=== PATIENT | female | born 1990 | race Caucasian/White ===

== ENCOUNTER → 2017-03-10 | Outpatient (CLI) | payer BC ==
[~2017-03-10] MED LIST: ONDA4TAB46 PO; PRENTAB26 PO
== END | disposition home or self-care (01) ==
LOC: C.LAB 12:32
PROVIDERS: ATTEND Obstetrics & Gynecology
DX: Z34.02 Encounter for supervision of normal first pregnancy, second trimester (principal)

== ENCOUNTER → 2017-03-11 | Day surgery (SDC) | payer BC ==
[~2017-03-11] VITALS: Ht 160 cm; Wt 78.5 kg
[2017-03-11 10:04] VITALS: BP 119/82; PULSE 87; TEMP 36.9; O2SAT 97; Ht 160 cm; Wt 78.5 kg
== END | disposition home or self-care (01) ==
LOC: C.MTU 09:44
PROVIDERS: ATTEND Obstetrics & Gynecology
DX: O36.0190 Maternal care for anti-D [Rh] antibodies, unspecified trimester, not applicable or unspecified (principal); Z3A.00 Weeks of gestation of pregnancy not specified

== ENCOUNTER → 2017-04-11 | Outpatient (CLI) | payer BC | END | disposition home or self-care (01) | LOC: C.LABSPEC 16:53 | PROVIDERS: ATTEND Obstetrics & Gynecology | DX: Z34.83 Encounter for supervision of other normal pregnancy, third trimester (principal) ==

== ENCOUNTER 2017-05-09 08:23 | Inpatient (IN) | payer BC ==
[~2017-05-09] VITALS: Ht 160 cm; Wt 85.9 kg
[2017-05-09] MEDS ORDERED: LACTATED RINGER'S 1000ML 1,000 ML IV PRN (09:09)
[2017-05-09 09:23] VITALS: Ht 160 cm; Wt 85.9 kg
[2017-05-09] MEDS ORDERED: PATIENT'S ALLERGY INFO NEEDS ENTERED SCH (09:30)
[2017-05-09 09:56] LABS: HEMATOCRIT 36.2 % (37-47); HEMOGLOBIN 12.3 g/dL (12.0-16.0); MEAN CORPUSCULAR HEMOGLOBIN 30.6 pg (25-34); MEAN PLATELET VOLUME 9.8 fL (7.4-10.4); PLATELET COUNT 308 K/uL (130-400); RED CELL DISTRIBUTION WIDTH SD 42.7 fL (36.4-46.3); WHITE BLOOD COUNT 16.31 K/uL (4.8-10.8)
[2017-05-09] MEDS: LACTATED RINGER'S 1000ML 1,000 ML IV SCH ×2 (14:56→16:52)
[2017-05-09] MEDS ORDERED: EpHEDrine SULFATE INJ 50 MG/ML AMP ONE (15:01)
[2017-05-09] MEDS ORDERED: BUPIVACAINE 0.25% 30 ML VIAL ONE (15:01)
[2017-05-09] MEDS ORDERED: FENTANYL CITRATE INJ 50 MCG/1 ML 2 ML VIAL ONE (15:02)
[2017-05-09] MEDS ORDERED: FENTANYL 2MCG/ML ROPIV 1.25MG/ML 100ML BAG EPI ONE (15:03)
[2017-05-09] MEDS ORDERED: NALOXONE HCL INJ 1 MG in SODIUM CHLORIDE 0.9% 1000ML 1,000 ML IV PRN (15:54)
[2017-05-09] MEDS ORDERED: LACTATED RINGER'S 1000ML 500 ML IV PRN ×2 (15:54→16:14)
[2017-05-09] MEDS ORDERED: PROMETHAZINE HCL INJ 6.25 MG in SODIUM CHLORIDE 0.9% 50ML 50 ML IV PRN (16:00)
[2017-05-09] MEDS ORDERED: DiphenhydrAMINE HCL 50 MG/ML VIAL IV PRN (16:00)
[2017-05-09] MEDS ORDERED: ONDANSETRON INJ 2 MG/ML 2 ML VIAL IV PRN (16:00)
[2017-05-09] MEDS ORDERED: EpHEDrine SULFATE INJ 50 MG/ML AMP IV PRN (16:00)
[2017-05-09] MEDS ORDERED: NALBUPHINE HCL INJ 10 MG/ML AMP IV PRN (16:00)
[2017-05-09] MEDS ORDERED: FENTANYL 2MCG/ML ROPIV 1.25MG/ML 100ML BAG EPI PRN (16:00)
[2017-05-09] MEDS ORDERED: NALOXONE HCL INJ 0.4 MG/1 ML VIAL/CARP IV PRN (16:00)
[2017-05-09] MEDS ORDERED: OXYTOCIN 30 UNITS/500ML NSS IV PRN ×2 (16:15→20:15)
[2017-05-09] MEDS ORDERED: ACETAMINOPHEN 325 MG TAB PO PRN (20:15)
[2017-05-09] MEDS ORDERED: OXYCODONE/ACETAMINOPHEN 5-325 TAB PO PRN (20:15)
[2017-05-09] MEDS ORDERED: ACETAMINOPHEN/CODEINE 300/30MG TAB PO PRN ×2 (20:15)
[2017-05-09] MEDS ORDERED: HYDROCORTISONE ACETATE 25 MG SUPP PR PRN (20:15)
[2017-05-09] MEDS ORDERED: SUPERCREAM 0.870 % 15GM JAR EXT PRN (20:15)
[2017-05-09] MEDS ORDERED: DIPHTHERIA/TETANUS/PERTUSSIS 0.5 ML SYR/VIAL IM. ONE (20:15)
[2017-05-09] MEDS ORDERED: BENZOCAINE 20% AER SPR 82.5 GM CAN EXT PRN (20:15)
[2017-05-09] MEDS ORDERED: LANOLIN OINT EXT PRN (20:15)
--- NOTE | 2017-05-09 20:28 | DELIVERY SUMMARY ---
DATE OF OPERATION: 05/09/2017 The patient is a 27-year-old 1, para 1, general health is good. Blood type O negative, rubella titer nonimmune, uneventful course, due date is 05/08/2017. Vaginal beta strep negative. She was scheduled for induction, but came in an active labor. On admission, she was about 4-5 cm. She thinned out cervix on her own without any stimulation, went to about 5-6 then requested and received epidural anesthesia. She obtained good pain relief. Membranes were ruptured surgically. Fluid was clear. She was augmented with IV Pitocin. Contractions were regular. Head descended nicely after becoming fully dilated around on the perineum and with just several pushes, she delivered a live female infant via direct occiput anterior position over an intact perineum. Infant was suctioned through the mouth and nose. Shoulders were delivered without difficulty. Cord was clamped and cut. There was a deep clitoral laceration which was bleeding quite briskly. The area was infiltrated with local with epinephrine and then interrupted 3-0 chromic gut sutures were used to approximate the tissues and control the bleeding. Following this, a red rubber Lux catheter was inserted into the bladder to empty the bladder and to ensure that the urethra was patent. Inspection of the perineum revealed the perineum to be intact. With IV Pitocin running, the placenta was removed intact, it was held for pathology. Estimated blood loss was 200 mL and 1 and 5 minute Apgars were 9 and 9 respectively. I attest to the content of the Intraoperative Record and any orders documented therein. Any exception s are noted below.
--- NOTE | 2017-05-09 20:49 | Anesthesia Procedure Note ---
Anesthesia Epidural Removal Nt Date & Time May 09, 2017 at 20:48 Vital Signs Pain Intensity: 0.0 Notes Mental Status: alert / awake / arousable, participated in evaluation Nausea / Vomiting: adequately controlled Pain: adequately controlled Airway Patency, RR, SpO2: stable & adequate BP & HR: stable & adequate Hydration State: stable & adequate Neuraxial Anesthesia: was administered Anesthetic Complications: no major complications apparent, pt satisfied with anesthetic care Epidural: removed without complications, with tip intact
[2017-05-09 22:50] VITALS: BP 135/88; PULSE 104; TEMP 36.8; O2SAT 99
[2017-05-09] MEDS ORDERED: LABETALOL HCL 200 MG TAB PO PRN (23:00)
[2017-05-09] MEDS: IBUPROFEN 600 MG TAB PO PRN (23:05)
[2017-05-10 03:00] VITALS: BP 116/78; PULSE 92; TEMP 36.8; O2SAT 99
[2017-05-10 06:04] LABS: HEMATOCRIT 32.5 % (37-47); HEMOGLOBIN 10.9 g/dL (12.0-16.0)
[2017-05-10] MEDS: FERROUS SULFATE 325 MG TAB PO SCH (08:00)
--- NOTE | 2017-05-10 08:14 | Progress Note ---
Subjective May 10, 2017. Subjective conversation w/ patient Ambulation: ambulating normally Voiding: no voiding problems Passing Gas: Yes Diet Tolerance: Regular Diet Lochia: Small Feeding Type: Breast Feeding Review of Systems Constitutional: + fever Objective Vital Signs Date Time Temp Pulse Resp B/P (MAP) Pulse Ox O2 Delivery O2 Flow Rate FiO2 05/10/17 03:00 36.8 92 18 116/78 (91) 99 Room Air 05/09/17 22:50 99 Room Air 05/09/17 22:50 36.8 104 16 135/88 (104) 99 Room Air Physical Exam General Appearance: WELL-APPEARING Respiratory/Chest: lungs clear Abdomen: non tender Fundus: Firm, Non-Tender Extremities: no pedal edema, no calf tenderness Laboratory Results Last 24 Hours Test 05/09/17 09:25 05/10/17 05:44 White Blood Count 16.31 K/uL Red Blood Count 4.02 M/uL Hemoglobin 12.3 g/dL 10.9 g/dL Hematocrit 36.2 % 32.5 % Mean Corpuscular Volume 90.0 fL Mean Corpuscular Hemoglobin 30.6 pg Mean Corpuscular Hemoglobin Concent 34.0 g/dl RDW Standard Deviation 42.7 fL RDW Coefficient of Variation 13.0 % Platelet Count 308 K/uL Mean Platelet Volume 9.8 fL Assessment and Plan Post- Day#: 1
[2017-05-10 09:00] VITALS: BP 135/94; PULSE 102; TEMP 36.6
[2017-05-10] MEDS: PRENATAL VITAMIN TAB PO SCH (09:04)
[2017-05-10] MEDS: DOCUSATE SODIUM 100 MG CAP PO SCH ×2 (09:04→20:24)
[2017-05-10 11:30] VITALS: BP 123/84; PULSE 84
[2017-05-10 15:45] VITALS: BP 120/85; PULSE 101; TEMP 36.7
[2017-05-10] MEDS ORDERED: MEASLES, MUMPS & RUBELLA VIRUS VIAL SQ. ONE (19:00)
[2017-05-10 20:00] VITALS: BP 123/88; PULSE 88; TEMP 37; O2SAT 99
[2017-05-10] MEDS ORDERED: BISACODYL 5 MG TABEC PO SCH (20:00)
[2017-05-10] MEDS: IBUPROFEN 600 MG TAB PO PRN (22:32)
[2017-05-10 23:00] VITALS: BP 138/82; PULSE 90; TEMP 36.9
[2017-05-11] MEDS ORDERED: BISACODYL 10 MG SUPP PR PRN (07:00)
[2017-05-11 07:45] VITALS: BP 130/86; PULSE 89; TEMP 36.5
[2017-05-11] MEDS: IBUPROFEN 600 MG TAB PO PRN (08:22)
[2017-05-11] MEDS: PRENATAL VITAMIN TAB PO SCH (08:26)
[2017-05-11] MEDS: DOCUSATE SODIUM 100 MG CAP PO SCH (08:26)
[2017-05-11] MEDS: FERROUS SULFATE 325 MG TAB PO SCH (08:26)
--- NOTE | 2017-05-11 10:55 | Progress Note ---
Subjective May 11, 2017. Subjective conversation w/ patient Ambulation: ambulating normally Voiding: no voiding problems Passing Gas: Yes Lochia: Small Feeding Type: Breast Feeding Review of Systems Constitutional: + fever Objective Vital Signs Date Time Temp Pulse Resp B/P (MAP) Pulse Ox O2 Delivery O2 Flow Rate FiO2 05/10/17 23:00 Room Air 05/10/17 23:00 36.9 90 16 138/82 (100) Room Air 05/10/17 20:00 37.0 88 20 123/88 (100) 99 Room Air 05/10/17 15:45 36.7 101 18 120/85 (97) 05/10/17 11:30 84 123/84 (97) Physical Exam General Appearance: WELL-APPEARING Abdomen: non tender Fundus: Firm, Non-Tender Extremities: no pedal edema, no calf tenderness Assessment and Plan Post- Day#: 2
--- NOTE | 2017-05-11 10:56 | Discharge Instructions ---
Discharge Instructions Date of Service May 11, 2017. Admission Reason for Admission: R/O Labor Discharge Discharge Diagnosis / Problem: active labor Discharge Goals Goal(s): Routine recovery after delivery Activity Recommendations Activity Limitations: as noted below ACTIVITY RECOMMENDATIONS: * Gradual return to full activity over the next 2-3 weeks. * No lifting - nothing heavier than baby over the next 2-3 weeks. * Do not engage in vigorous exercise, sexual activity or sports until cleared by your physician. * Do not drive or operate any motorized equipment until cleared by your physician. * You may shower/bathe daily. DIET: Resume Previous Diet If Breast-feeding: * Increase caloric intake by 500 calories, eat 3 well balanced meals, 2 high protein snacks a day and drink 6-8 8oz. glasses of fluid per day. BREAST CARE: If you are not breast feeding: * Wear a supportive bra 24 hours a day for one to two weeks. * Avoid stimulating your breasts and nipples as much as possible during the first few weeks after delivery. * When taking a shower, have the warm water hit your back, not breasts. * When your breasts feel full, apply ice packs. Usually three to four times a day helps ease the discomfort. * Take a mild pain medication (Tylenol / Motrin) when you are uncomfortable. If breast feeding: * Use breast milk to lubricate nipples. Lansinoh cream may be used for sore nipples. You do not need to remove cream prior to breast feeding. If using a different brand of cream, check the label for directions regarding removal of cream prior to nursing. * Wear a supportive bra. * If having problems with breasts or breast feeding, call a supply chain consultant or your health care provider. OVER THE COUNTER MEDICATION: * For discomfort or pain, you may use Acetaminophen (Tylenol), Ibuprofen (Advil ), or Naproxen (Aleve) following the package directions. * For constipation you may use Colace following the package directions. SPECIAL CARE INSTRUCTIONS: * Vaginal rest (no tampons, douching, intercourse) until after doctor 's visit. * control as discussed with doctor. * Verbalizes understanding of car seat law as reviewed with patient nursing. * Car Seat hand-out given and reviewed with patient by nursing. * Shaken baby information reviewed with patient by nursing. Call you doctor if: * Temperature greater than or equal to 100.4 degrees F or 38.0 degrees C. Take your temperature twice daily for a week. * Bleeding becomes heavier than the heaviest part of your period - saturating a sanitary pad within an hour. * Passing large clots. * Bleeding has a foul smelling odor. * Signs and symptoms of phlebitis: leg pain, warm, red or swollen area on leg. * "Baby Blues" lasting longer than two weeks. ++ If you have had a and incision has increased pain, redness, swelling, presence of any drainage, or if the incision starts to open up. If you have any questions or concerns, call your health care practitioner at [phone]. FOLLOW-UP VISIT: Please call the office at to schedule a 6 week examination. . Instructions / Follow-Up Instructions / Follow-Up ACTIVITY RECOMMENDATIONS: * Gradual return to full activity over the next 2-3 weeks. * No lifting - nothing heavier than baby over the next 2-3 weeks. * Do not engage in vigorous exercise, sexual activity or sports until cleared by your physician. * Do not drive or operate any motorized equipment until cleared by your physician. * You may shower/bathe daily. DIET: Resume Previous Diet If Breast-feeding: * Increase caloric intake by 500 calories, eat 3 well balanced meals, 2 high protein snacks a day and drink 6-8 8oz. glasses of fluid per day. BREAST CARE: If you are not breast feeding: * Wear a supportive bra 24 hours a day for one to two weeks. * Avoid stimulating your breasts and nipples as much as possible during the first few weeks after delivery. * When taking a shower, have the warm water hit your back, not breasts. * When your breasts feel full, apply ice packs. Usually three to four times a day helps ease the discomfort. * Take a mild pain medication (Tylenol / Motrin) when you are uncomfortable. If breast feeding: * Use breast milk to lubricate nipples. Lansinoh cream may be used for sore nipples. You do not need to remove cream prior to breast feeding. If using a different brand of cream, check the label for directions regarding removal of cream prior to nursing. * Wear a supportive bra. * If having problems with breasts or breast feeding, call a supply chain consultant or your health care provider. OVER THE COUNTER MEDICATION: * For discomfort or pain, you may use Acetaminophen (Tylenol), Ibuprofen (Advil ), or Naproxen (Aleve) following the package directions. * For constipation you may use Colace following the package directions. SPECIAL CARE INSTRUCTIONS: * Vaginal rest (no tampons, douching, intercourse) until after doctor 's visit. * control as discussed with doctor. * Verbalizes understanding of car seat law as reviewed with patient nursing. * Car Seat hand-out given and reviewed with patient by nursing. * Shaken baby information reviewed with patient by nursing. Call you doctor if: * Temperature greater than or equal to 100.4 degrees F or 38.0 degrees C. Take your temperature twice daily for a week. * Bleeding becomes heavier than the heaviest part of your period - saturating a sanitary pad within an hour. * Passing large clots. * Bleeding has a foul smelling odor. * Signs and symptoms of phlebitis: leg pain, warm, red or swollen area on leg. * "Baby Blues" lasting longer than two weeks. ++ If you have had a and incision has increased pain, redness, swelling, presence of any drainage, or if the incision starts to open up. If you have any questions or concerns, call your health care practitioner at [phone]. FOLLOW-UP VISIT: Please call the office at to schedule a 6 week examination. Current Hospital Diet Patient's current hospital diet: Regular Diet Discharge Diet Recommended Diet: Regular Diet Pending Studies Studies pending at discharge: no Medical Emergencies . Who to Call and When: Medical Emergencies: If at any time you feel your situation is an emergency, please call 911 immediately. . Non-Emergent Contact Non-Emergency issues call your: [employer] Call Non-Emergent contact if: temperature is above 100.5 . . "Provider Documentation" section prepared by Luke Trotter. . VTE Core Measure Inpt VTE Proph given/why not?: Treatment not indicated
[2017-05-11 11:25] VITALS: BP_DIAS 86; PULSE 89; TEMP 36.5
== END 2017-05-11 11:55 | disposition home or self-care (01) | DRG 775 ==
LOC: C.LD 08:23 → C.OPB 08:23 → C.LD 09:12 → C.OBG 22:22
PROVIDERS: ADMIT Obstetrics & Gynecology; ATTEND Obstetrics & Gynecology
PROC: 10E0XZZ Delivery of Products of Conception, External Approach (ICD-10-PCS; principal; 2017-05-09)
PROC: 0HQ9XZZ Repair Perineum Skin, External Approach (ICD-10-PCS; principal; 2017-05-09)
DX: O70.0 First degree perineal laceration during delivery (principal); Z3A.40 40 weeks gestation of pregnancy; Z37.0 Single live birth

== ENCOUNTER → 2017-06-20 | Outpatient (CLI) | payer BC | END | disposition home or self-care (01) | LOC: C.PAPS 15:04 | PROVIDERS: ATTEND Obstetrics & Gynecology | DX: Z39.2 Encounter for routine postpartum follow-up (principal); R87.610 Atypical squamous cells of undetermined significance on cytologic smear of cervix (ASC-US) ==

== ENCOUNTER 2019-06-15 19:20 | Inpatient (IN) ==
[2019-06-15] MEDS ORDERED: INFLUENZA VIRUS QUAD VACCINE 0.5 ML SYR IM ONE (20:01)
[2019-06-15] MEDS ORDERED: OXYTOCIN 30 UNITS/500 ML BAG IV PRN (20:01)
[2019-06-15] MEDS ORDERED: INFLUENZA ADMINISTRATION CHARGE ONE (20:01)
[2019-06-15 20:35] LABS: Hematocrit (blood only) 35.2 % (37-47); Hemoglobin 11.7 g/dL (12.0-16.0); Mean Corpuscular Hemoglobin 29.9 pg (25-34); Mean Platelet Volume 8.9 fL (7.4-10.4); Platelet Count 350 K/uL (130-400); RDW Coefficient of Variation 13.9 % (11.5-14.5); RDW Standard Deviation 45.5 fL (36.4-46.3); Red Blood Count 3.91 M/uL (4.2-5.4); White Blood Count 12.22 K/uL (4.8-10.8)
[2019-06-15] MEDS ORDERED: miSOPROStoL 50 MCG TAB ONE (20:35)
[2019-06-15 20:59] LABS: Mean Corpuscular Hgb Conc 33.2 g/dL (32-36)
[2019-06-15] MEDS ORDERED: miSOPROStoL 50 MCG TAB PO ONE (21:00)
[2019-06-15] MEDS: LABETALOL HCL 100 MG TAB PO SCH (21:54)
[2019-06-16] MEDS ORDERED: miSOPROStoL 50 MCG TAB ONE (01:38)
[2019-06-16] MEDS: miSOPROStoL 50 MCG TAB PO SCH ×3 (01:58→17:37)
[2019-06-16] MEDS: LABETALOL HCL 100 MG TAB PO SCH ×3 (08:13→22:27)
[2019-06-16] MEDS ORDERED: OXYTOCIN 30 UNITS/500 ML BAG IV PRN (09:10)
[2019-06-16] MEDS: LACTATED RINGER'S 1,000 ML IV PRN ×3 (09:53→21:12)
[2019-06-16] MEDS ORDERED: fentaNYL citrate 100 MCG/2 ML VIAL ONE (12:47)
[2019-06-16] MEDS ORDERED: BUPIVACAINE 0.25% 30 ML VIAL ONE (12:47)
[2019-06-16] MEDS ORDERED: ePHEDrine sulfate 50 MG/ML AMP ONE (12:47)
[2019-06-16] MEDS ORDERED: fentaNYL 2MCG/ML ROPIV 1.25MG/ML 100 ML BAG EPI ONE (12:48)
--- NOTE | 2019-06-16 12:57 | Anesthesiology Consultation ---
Date of Service June 16, 2019 Assessment & Plan (1) Encounter for pre-operative examination: Chart Review Chart Review: Patient NOT seen in Pre Admission Testing and Acceptable Risk for Labor Epidural Consults Requested none ASA ASA3 Proposed Anesthesia Anesthesia Type: Labor Epidural Risk / Benefits Reviewed With: PT / POA / Parent / Guardian, Accepts Plan and Informed Consent Obtained History Height/Weight Height: 5 ft 4 in Weight: 89.358 kg Allergies Allergy/AdvReac Type Severity Reaction Status Date / Time No Known Allergies Allergy Verified 04/09/19 08:53 Medications Home Medications Medication Instructions Recorded Confirmed Last Taken labetalol 200 mg PO TID 04/09/19 06/15/19 06/15/19 15:00 vit [id number] 1 tab PO DAILY 06/15/19 06/15/19 06/15/19 06:00 [ Vitamin] Active Medications Generic Name Dose Route Start Last Admin Trade Name Freq PRN Reason Stop Dose Admin Lactated Ringer's 1,000 mls @ 125 mls/hr 06/15/19 20:01 06/16/19 12:40 Lr IV 06/17/19 20:00 999 mls/hr .Q8H PRN Infusion L&D Protocol Protocol Oxytocin 30 units in 500 mls @ 12 mls/hr 06/16/19 09:10 06/16/19 12:30 Pitocin IV 06/18/19 09:09 0.72 units/hr .Q24H PRN 12 mls/hr Labor Induction/Augmentation Titration Protocol 0.72 UNITS/HR Labetalol HCl 100 mg 06/15/19 21:00 06/16/19 08:13 Normodyne PO 07/15/19 20:59 100 mg TID MERCEDES Administration Misoprostol 50 mcg 06/16/19 01:39 06/16/19 05:45 Cytotec PO 07/16/19 01:38 50 mcg Q4 MERCEDES Administration NPO Date Last Intake of Fluids: 06/16/19 Time Last Intake of Fluids: 13:03 Date Last Intake of Solids: 06/16/19 Time Last Intake of Solids: 08:00 Past Medical History Medical History (Updated 06/16/19 @ 13:00 by Tawana Paulino MD) Dental root implant present Hypertension affecting Exercise / Class Metabolic Activity III < 4 Walking/Shop/Light housework Past Surgical History Surgical History (Updated 06/16/19 @ 13:40 by Tawana Paulino MD) No significant past surgical history Past Anesthesia History No Family Hx of Anesthesia Complications History of PONV No Hx of Motion Sickness Social History Smoking Status: Never smoker Do You Dip or Chew Tobacco: No Hx Alcohol Use: No Hx Substance Use: No Review of Systems Patient denies history of abnormal bleeding or bleeding disorder. Patient denies active use of anticoagulants other than low dose aspirin. Patient denies numbness, tingling or weakness in lower extremities. Physical Exam Vital Signs Last Vital Signs Temp 37.1 C 06/16/19 12:41 Pulse 86 06/16/19 12:56 Resp 20 06/16/19 12:41 BP 130/86 06/16/19 12:41 Pulse Ox 98 06/16/19 12:56 Constitutional not obese (Gravid uterus) ENMT Mouth: no TMJ abnormality and oral opening not small Thyromental Distance: < 3.5 Finger Breadths Mallampati Class: III Neck normal visual inspection; neck extension not limited Respiratory normal respiratory effort Auscultation: lungs clear to auscultation bilaterally Cardiovascular Rate/Rhythm: regular rate and regular rhythm Heart Sounds: no murmur Neurologic moves all extremities Motor/Sensory: no sensory deficit Psychiatric Orientation: alert and oriented x 3 Testing Laboratory Results 06/15/19 20:19
[2019-06-16] MEDS ORDERED: NALBUPHINE HCL INJ 10 MG/ML AMP IV PRN (13:41)
[2019-06-16] MEDS ORDERED: ePHEDrine sulfate 50 MG/ML AMP IV PRN (13:41)
[2019-06-16] MEDS ORDERED: NALOXONE HCL 0.4 MG/1 ML VIAL/CARP IV PRN (13:41)
[2019-06-16] MEDS ORDERED: NALOXONE HCL 1 MG in SODIUM CHLORIDE 0.9% 1000ML 1,000 ML IV PRN (13:41)
[2019-06-16] MEDS ORDERED: DiphenhydrAMINE HCL 50 MG/ML VIAL IV PRN (13:41)
[2019-06-16] MEDS ORDERED: ONDANSETRON INJ 2 MG/ML 2 ML VIAL IV PRN (13:41)
[2019-06-16] MEDS ORDERED: fentaNYL 2MCG/ML ROPIV 1.25MG/ML 100 ML BAG EPI PRN (13:41)
[2019-06-17] MEDS ORDERED: OXYCODONE/ACETAMINOPHEN 5mg/325mg TAB PO PRN (00:14)
[2019-06-17] MEDS ORDERED: HYDROCORTISONE ACETATE 25 MG SUPP PR PRN (00:14)
[2019-06-17] MEDS ORDERED: ACETAMINOPHEN W/CODEINE #3 1 TAB PO PRN (00:14)
[2019-06-17] MEDS ORDERED: SUPERCREAM 0.870% 15 GM JAR EXT PRN (00:14)
[2019-06-17] MEDS ORDERED: DIPHTHERIA/TETANUS/PERTUSSIS 0.5 ML SYR/VIAL IM ONE (00:14)
[2019-06-17] MEDS ORDERED: BENZOCAINE 20% AER SPR 82.5 GM CAN EXT PRN (00:14)
[2019-06-17] MEDS ORDERED: OXYTOCIN 30 UNITS/500 ML BAG IV PRN (00:14)
[2019-06-17] MEDS ORDERED: bisacodyL 10 MG SUPP PR PRN (00:14)
[2019-06-17] MEDS ORDERED: ACETAMINOPHEN 325 MG TAB PO PRN (00:14)
--- NOTE | 2019-06-17 03:20 | Operative Report ---
DATE OF OPERATION: 06/17/2019 She is 1, para 2. Present was complicated by hypertension. She was on labetalol 100 mg 3 times a day Once she got started on this, she was stable throughout her whole . She was brought in at 39 weeks and 2 days for induction, given Cytotec several doses during the night. The following morning, she was started on IV Pitocin. Eventually, had an epidural for pain control. Membranes were ruptured surgically. She slowly began to develop a pattern. Head came down and she delivered the with about 3 pushes. The nuchal cord which was easily reduced over the head. was suctioned through the mouth and the nose. Shoulders delivered without difficulty. Cord was clamped and cut. Cord blood was taken. With IV Pitocin running, the placenta was removed intact. The placenta looked small, there might have been some light meconium staining. Perineum was intact; however, there was a periurethral laceration on the right side which was bleeding. This was infiltrated with local and sutured with a running 3-0 chromic. Following this, a red rubber catheter was used to empty the bladder. Hemostasis was good. ESTIMATED BLOOD LOSS: 200 mL. I attest to the content of the Intraoperative Record and any orders documented therein. Any exception s are noted below.
[2019-06-17] MEDS: IBUPROFEN 600 MG TAB PO PRN ×2 (06:10→18:35)
--- NOTE | 2019-06-17 06:33 | Anesthesia Procedure Note ---
Date of Service June 17, 2019 Anesthesia Post Epidural Note Vital Signs Vital Signs: Temp Pulse Resp BP Pulse Ox 36.9 C 114 H 16 136/77 96 06/17/19 02:55 06/17/19 02:55 06/17/19 02:55 06/17/19 02:55 06/17/19 02:55 Pain Intensity Bilateral Lower Abdomen: Pain Intensity: 1 Notes Mental Status: alert / awake / arousable and participated in evaluation Nausea / Vomiting: adequately controlled Pain: adequately controlled Airway Patency, RR, SpO2: stable & adequate BP & HR: stable & adequate Hydration State: stable & adequate Neuraxial Anesthesia: was administered and sensory block resolved Anesthetic Complications: no major complications apparent and Pt Satisfied with anesthetic care Epidural: Removed without complications and With tip intact Notes: Epidural site clean, dry and intact. No signs of edema, erythema or bruising at insertion site. Pt instructed to request anesthesia if she has residual lower extremity numbness or if she develops lower extremity pain or weakness, back pain or headache.
[2019-06-17] MEDS: PRENATAL VITAMIN 1 TAB PO SCH (08:40)
[2019-06-17] MEDS: DOCUSATE SODIUM 100 MG CAP PO SCH ×2 (08:40→20:39)
[2019-06-17] MEDS: FERROUS SULFATE 325 MG TAB PO SCH (08:40)
[2019-06-17] MEDS: LABETALOL HCL 100 MG TAB PO SCH ×2 (08:40→20:39)
[2019-06-18 06:27] LABS: Hematocrit (blood only) 35.2 % (37-47); Hemoglobin 11.5 g/dL (12.0-16.0); Mean Corpuscular Hgb Conc 32.7 g/dL (32-36); Mean Corpuscular Volume 91.9 fL (80-100); Mean Platelet Volume 8.7 fL (7.4-10.4); Platelet Count 310 K/uL (130-400); RDW Coefficient of Variation 14.2 % (11.5-14.5); RDW Standard Deviation 47.6 fL (36.4-46.3); Red Blood Count 3.83 M/uL (4.2-5.4); White Blood Count 13.72 K/uL (4.8-10.8)
[2019-06-18] MEDS: IBUPROFEN 600 MG TAB PO PRN ×2 (06:56→11:28)
[2019-06-18] MEDS: PRENATAL VITAMIN 1 TAB PO SCH (08:23)
[2019-06-18] MEDS: DOCUSATE SODIUM 100 MG CAP PO SCH (08:23)
[2019-06-18] MEDS: LABETALOL HCL 100 MG TAB PO SCH (08:23)
[2019-06-18] MEDS: FERROUS SULFATE 325 MG TAB PO SCH (08:23)
--- NOTE | 2019-06-18 08:55 | Obstetrical Progress Note ---
Date of Service June 18, 2019 Assessment & Plan Admission and Anticipated Discharge Date Admission Date: June 15, 2019 Physical Exam Physical Exam: abdomen soft and non tender no calf tenderness ambulating well vaginal bleeding scant hgb 11.5 blood pressure normal Results & Data ([facility]) Vital Signs (Past 12 Hours) Vital Signs Temp Pulse Resp BP Pulse Ox 06/18/19 07:44 36.4 C L 77 16 115/80 98 06/17/19 23:30 36.5 C 80 18 135/80
[2019-06-18] MEDS ORDERED: bisacodyL 5 MG TABEC PO SCH (20:00)
== END 2019-06-18 19:55 | disposition home or self-care (01) | DRG 807 ==
LOC: 4S1 19:20 → 4S2 06-17 02:25